=== PATIENT | female | born 1955 | race Hispanic/Latino ===

== ENCOUNTER 2022-01-11 09:29 | Day surgery (SDC) | payer BC ==
[2022-01-10 11:49] VITALS: BMI 30.4
[~2022-01-11 09:29] MED LIST: EPINEPHrine 0.3 MG in Ophthalmic Irrigation Solution 500 ML IRR SCH; Midazolam HCl 2 mg/2 ml Vial ONE; fentaNYL Citrate/PF 100 MCG/2 ML SYRINGE ONE
[2022-01-11] MEDS ORDERED: Cyclopentolate 1% Opth Drop 2 ML BOT ONE (09:54)
[2022-01-11] MEDS ORDERED: Phenylephrine 2.5% Ophth Soln 5 ML BOT ONE (09:54)
[2022-01-11] MEDS ORDERED: Lidocaine 1% MPF 2 ML VIAL ONE (09:54)
[2022-01-11] MEDS ORDERED: PHENYLEPHRINE-NS 100 MCG/ML 10 ML SYRINGE ONE (11:02)
[2022-01-11] MEDS ORDERED: Maxitrol 0.1% Opth Oint 3.5 GM TUBE ONE (11:02)
[2022-01-11] MEDS ORDERED: CEFAZOLIN 1 GM VIAL ONE (11:02)
[2022-01-11] MEDS ORDERED: Lidocaine 1% PF 5 ML VIAL ONE (11:02)
[2022-01-11] MEDS ORDERED: Bupivacaine 0.75% 10 ML VIAL ONE (11:02)
[2022-01-11] MEDS ORDERED: PROPOFOL 200 MG/20 ML VIAL ONE (11:02)
[2022-01-11] MEDS ORDERED: Lidocaine 4% PF 5 ML AMP ONE (11:02)
[2022-01-11] MEDS ORDERED: Ondansetron PF 4 MG/2 ML Vial ONE (11:02)
[2022-01-11] MEDS ORDERED: Triamcinolone 40 MG/ML VIAL ONE (11:02)
== END 2022-01-11 14:14 | disposition home or self-care (01) ==
LOC: SDC 09:29
PROVIDERS: ATTEND Ophthalmology Retina Specialist
PROC: 08RK3JZ Replacement of Left Lens with Synthetic Substitute, Percutaneous Approach (ICD-10-PCS; principal; 2022-01-11)
PROC: 08T53ZZ Resection of Left Vitreous, Percutaneous Approach (ICD-10-PCS; principal; 2022-01-11)
DX: H59.022 Cataract (lens) fragments in eye following cataract surgery, left eye (principal); H27.02 Aphakia, left eye; K21.9 Gastro-esophageal reflux disease without esophagitis
CPT/HCPCS: J0171; J0690; J2250; J2405; J2704; J3301; J3490

== ENCOUNTER 2022-03-01 06:06 | Day surgery (SDC) | payer BC ==
[2022-02-28 11:27] VITALS: BMI 29.2
[~2022-03-01 06:06] MED LIST changes: -EPINEPHrine 0.3 MG in Ophthalmic Irrigation Solution 500 ML IRR SCH; +Fluorouracil 100 MG, Enoxaparin Sodium 25 MG, EPINEPHrine 0.3 MG in Ophthalmic Irrigati... IRR SCH; -Midazolam HCl 2 mg/2 ml Vial ONE; -fentaNYL Citrate/PF 100 MCG/2 ML SYRINGE ONE
[2022-03-01] MEDS ORDERED: Midazolam HCl 2 mg/2 ml Vial ONE (06:17)
[2022-03-01] MEDS ORDERED: PROPOFOL 20 ML ONE (06:17)
[2022-03-01] MEDS ORDERED: Cyclopentolate 1% Opth Drop 2 ML BOT ONE (06:24)
[2022-03-01] MEDS ORDERED: Phenylephrine 2.5% Ophth Soln 5 ML BOT ONE (06:24)
[2022-03-01] MEDS ORDERED: FENTANYL 50 MCG/ML 1 ML VIAL ONE (06:35)
[2022-03-01] MEDS ORDERED: Famotidine/PF 20 mg/2ml Vial ONE (07:02)
[2022-03-01] MEDS ORDERED: CEFAZOLIN 1 GM VIAL ONE (07:36)
[2022-03-01] MEDS ORDERED: Lidocaine 1% PF 5 ML VIAL ONE (07:36)
[2022-03-01] MEDS ORDERED: Maxitrol 0.1% Opth Oint 3.5 GM TUBE ONE (07:36)
[2022-03-01] MEDS ORDERED: Triamcinolone 40 MG/ML VIAL ONE (07:36)
[2022-03-01] MEDS ORDERED: Lidocaine 4% PF 5 ML AMP ONE (07:36)
[2022-03-01] MEDS ORDERED: Bupivacaine 0.75% 10 ML VIAL ONE (07:36)
[2022-03-01] MEDS ORDERED: Enoxaparin Sodium 30 MG/0.3 ML SYRINGE ONE (07:36)
== END 2022-03-01 10:10 | disposition home or self-care (01) ==
LOC: SDC 06:06
PROVIDERS: ATTEND Ophthalmology Retina Specialist
PROC: 08T53ZZ Resection of Left Vitreous, Percutaneous Approach (ICD-10-PCS; principal; 2022-03-01)
DX: H33.42 Traction detachment of retina, left eye (principal); K21.9 Gastro-esophageal reflux disease without esophagitis
CPT/HCPCS: C1814; J0171; J0690; J1650; J2250; J2704; J3010; J3301; J3490; J9190; S0028

== ENCOUNTER 2023-12-19 06:57 | Day surgery (SDC) | payer BC ==
[2023-12-17 11:31] VITALS: BMI 29.2
[~2023-12-19 06:57] MED LIST changes: +EPINEPHrine 0.3 MG in Ophthalmic Irrigation Solution 500 ML IRR SCH; -Fluorouracil 100 MG, Enoxaparin Sodium 25 MG, EPINEPHrine 0.3 MG in Ophthalmic Irrigati... IRR SCH
[2023-12-19] MEDS ORDERED: PHENYLephrine 2.5% Ophth Soln 15 ml Bottle ONE (08:13)
[2023-12-19] MEDS ORDERED: Cyclopentolate 1% Opth Drop 2 ML BOT ONE ×2 (08:13→08:14)
[2023-12-19] MEDS ORDERED: fentaNYL 50 mcg/mL 1 mL Vial ONE (09:06)
[2023-12-19] MEDS ORDERED: Midazolam HCl 2 mg/2 ml Vial ONE (09:06)
[2023-12-19] MEDS ORDERED: Lidocaine 4% PF 5 ML AMP ONE (09:15)
[2023-12-19] MEDS ORDERED: Lidocaine 1% PF 5 ML VIAL ONE (09:15)
[2023-12-19] MEDS ORDERED: PROPOFOL 200 MG/20 ML VIAL ONE (09:15)
[2023-12-19] MEDS ORDERED: Triamcinolone 40 MG/ML VIAL ONE (09:15)
[2023-12-19] MEDS ORDERED: Bupivacaine 0.75% 10 ML VIAL ONE (09:15)
[2023-12-19] MEDS ORDERED: CEFAZOLIN 1 GM VIAL ONE (09:15)
[2023-12-19] MEDS ORDERED: Maxitrol 0.1% Opth Oint 3.5 GM TUBE ONE (09:15)
== END 2023-12-19 10:55 | disposition home or self-care (01) ==
LOC: SDC 06:57
PROVIDERS: ATTEND Ophthalmology Retina Specialist
PROC: 08T53ZZ Resection of Left Vitreous, Percutaneous Approach (ICD-10-PCS; principal; 2023-12-19)
DX: H43.312 Vitreous membranes and strands, left eye (principal); K21.9 Gastro-esophageal reflux disease without esophagitis; Z90.49 Acquired absence of other specified parts of digestive tract
CPT/HCPCS: J0171; J0690; J2250; J2704; J3010; J3301; J3490